=== PATIENT | female | born 1970 | race African-American/Black ===

== ENCOUNTER 2016-12-04 09:51 | Outpatient (CLI) | payer OTHER ==
[2016-12-04 18:16] LABS: #Basophils 0.1 thou/uL (0.0-0.2); #Eosinphils 0.3 thou/uL (0.0-0.7); #Lymphocytes 3.8 thou/uL (1.20-3.40); #Monocytes 0.5 thou/uL (0.11-0.59); #Neutrophils 4.5 thou/uL (1.40-6.50); %Basophils 1.2 % (0.0-1.0); %Monocytes 5.6 % (0.0-10.0); Hematocrit 41.6 % (36.0-47.0); Mean Platelet Volume 9.4 fL (7.4-10.4); Red Blood Cell (RBC) Count 5.19 mill/uL (4.20-5.40); White Blood Cell (WBC) Count 9.1 thou/uL (4.8-10.8)
[2016-12-04 18:25] LABS: Hemoglobin A1c 13.3 % (4.0-6.0)
[2016-12-04 18:28] LABS: Microalbumin Urine 50.8 mg/dL (0.5-50.0)
[2016-12-04 18:35] LABS: ALT (SGPT) 13 U/L (0-55); AST (SGOT) 14 U/L (5-34); Alkaline Phosphatase 98 U/L (40-150); Anion Gap 12 mmol/L (10-20); BUN (Urea Nitrogen) 11 mg/dL (7.0-18.7); Bilirubin, Total 0.4 mg/dL (0.2-1.2); Calc. Creatinine Clearance 0 mL/min (70-130); Calcium 9.6 mg/dL (7.8-10.44); Carbon Dioxide 28 mmol/L (22-29); Chloride 99 mmol/L (98-107); Estimated GFR-MDRD 78; Globulin 3.7 g/dL (2.4-3.5); LDL Cholesterol, Calculated 150 mg/dL; Protein, Total 7.2 g/dL (6.0-8.3)
== END 2016-12-04 09:52 | disposition home or self-care (01) ==
LOC: LABLEX 09:51
PROVIDERS: ATTEND Family Medicine
DX: E78.5 Hyperlipidemia, unspecified (principal); E11.9 Type 2 diabetes mellitus without complications; I10 Essential (primary) hypertension; D64.9 Anemia, unspecified
CPT/HCPCS: 36415; 80053; 80061; 82043; 83036; 85025

== ENCOUNTER 2016-12-07 17:25 | Outpatient (CLI) | payer OTHER ==
--- NOTE | 2016-12-10 07:59 | RAD ---
RIGHT ANKLE THREE VIEWS 12/07/16 An overlying bandage or brace partially obscures some bony detail. No acute fractures were demonstra ness. A calcaneal spur was seen. There is some bony spurring in the talonavicular joint. The tibiotal ar joint appears intact. IMPRESSION: No acute findings. POS: HOME
== END 2016-12-07 17:26 | disposition home or self-care (01) ==
LOC: BURRAD 17:25
PROVIDERS: ATTEND Family Medicine
DX: M25.571 Pain in right ankle and joints of right foot (principal); M79.604 Pain in right leg